=== PATIENT | male | born 1965 | race Two or more races ===

== ENCOUNTER 2021-02-18 12:39 | Day surgery (SDC) | payer OTHER, SELFPAY ==
[~2021-02-18] VITALS: Ht 172.7 cm; Wt 93.0 kg
[~2021-02-18 12:39] MED LIST: CEFAZOLIN SOD 2 GM in D5W 50 ML IV ONE
[2021-02-18] MEDS ORDERED: fentaNYL CITRATE 250 MCG/5 ML AMP IV ONE (13:38)
[2021-02-18] MEDS ORDERED: NS IRRIG SOLN 1000 ML IR ONE (13:38)
[2021-02-18] MEDS ORDERED: LIDOCAINE/EPI MPF 1%1:200000 30 ML VIAL INJ ONE (13:38)
[2021-02-18] MEDS ORDERED: LR 1,000 ML IV.SOLN IV ONE (13:38)
[2021-02-18] MEDS ORDERED: MIDAZOLAM HCL 5 MG/5 ML VIAL IVP ONE (13:38)
[2021-02-18] MEDS ORDERED: BACITRACIN ZINC 15 GM TOPICAL OINTMENT TP ONE (13:38)
[2021-02-18] MEDS ORDERED: hydrALAZINE HCL 20 MG/ML VIAL IVP PRN (14:15)
[2021-02-18] MEDS ORDERED: MEPERIDINE HCL/PF 25 MG/ML DISP.SYRIN IVP PRN (14:15)
[2021-02-18] MEDS ORDERED: MIDAZOLAM HCL 2 MG/2 ML VIAL (VERSED) IVP PRN (14:15)
[2021-02-18] MEDS ORDERED: ONDANSETRON HCL 4 MG/2 ML VIAL IVP PRN (14:15)
[2021-02-18] MEDS ORDERED: HYDROmorphone 1 MG/ML INJ. CARTRIDGE IVP PRN ×2 (14:15)
[2021-02-18] MEDS ORDERED: LR 1,000 ML IV SCH (14:15)
[2021-02-18 16:23] VITALS: BP_SYST 125
== END 2021-02-18 16:00 | disposition home or self-care (01) ==
LOC: SDS 12:39 → SMU 12:40 → SDS 16:00
PROVIDERS: ATTEND Surgery
DX: L72.8 Other follicular cysts of the skin and subcutaneous tissue (principal); L02.818 Cutaneous abscess of other sites; I10 Essential (primary) hypertension; G47.33 Obstructive sleep apnea (adult) (pediatric); Z99.89 Dependence on other enabling machines and devices; Z79.899 Other long term (current) drug therapy; Z20.822 Contact with and (suspected) exposure to COVID-19
CPT/HCPCS: 11424; 88305; J0690; J2250; J3010; J7060; J7120; U0003